=== PATIENT | female | born 2000 | race Caucasian/White ===

== ENCOUNTER 2018-05-17 02:38 | Emergency (ER) | payer OTHER ==
[~2018-05-17] VITALS: Ht 162.6 cm; Wt 49.9 kg
--- NOTE | 2018-05-17 03:00 | NUR ---
DR HILDA SANDHU MD AT BEDSIDE FOR MSE.
[2018-05-17] MEDS ORDERED: DEXAMETHASONE 4 MG TABLET ONE (03:09)
--- NOTE | 2018-05-17 03:14 | NUR ---
Patient discharged to home in stable conditon. Written and verbal after care instructions given. Patient verbalizes understanding of instructions. Pt accompanied by mother. Denies SOB, wheezing, CP, N/V. No distress noted.
[2018-05-17] MEDS ORDERED: DEXAMETHASONE 4 MG TABLET PO ONE (03:15)
[2018-05-17 03:16] VITALS: BP 111/72
== END 2018-05-17 03:17 | disposition home or self-care (01) ==
LOC: ER 02:44
DX: T78.40XA Allergy, unspecified, initial encounter (principal); L50.9 Urticaria, unspecified; Z91.018 Allergy to other foods
CPT/HCPCS: 99282; A4663; J8540